=== PATIENT | male | born 1965 | race Two or more races ===

== ENCOUNTER 2016-10-22 05:49 | Emergency (ER) | payer BC | END 2016-10-22 07:30 | disposition home or self-care (01) | LOC: ER 05:49 | DX: S16.1XXA Strain of muscle, fascia and tendon at neck level, initial encounter (principal); W18.2XXA Fall in (into) shower or empty bathtub, initial encounter; Y93.E1 Activity, personal bathing and showering; Y92.008 Other place in unspecified non-institutional (private) residence as the place of occurrence of the external cause; G24.3 Spasmodic torticollis; E11.9 Type 2 diabetes mellitus without complications; Z79.84 Long term (current) use of oral hypoglycemic drugs; F17.210 Nicotine dependence, cigarettes, uncomplicated | CPT/HCPCS: 72050 ==